=== PATIENT | male | born 1985 | race Caucasian/White ===

== ENCOUNTER 2020-07-20 11:52 | Inpatient (IN) | payer OTHER ==
[~2020-07-20] VITALS: Ht 172.7 cm; Wt 73.0 kg
--- NOTE | 2020-07-20 12:41 | NUR ---
SE RECIBE PACIENTE MASCULINO ALERTA Y ORIENTADO EN LAS RODRIGO ESFERAS. PACIENTE REFIERE KESHA PRESENTADO JASON CONVULSION A LAS 5AM LA CUAL FUE PRESENCIADA POR BARNES NOVIA. PACIENTE REFIERE PRESENTAR DOLOR DE DANDRE. SE CHERYL SIGNOS VITALES Y SE UBICA EN CHRISTA #[id number].
--- NOTE | 2020-07-20 14:31 | NUR ---
PACIENTE EVALUADO POR EL MEDICO EN TUR[place], SE VERIFICAN LAS ORDENES MEDICAS Y SE LE ORIENTA SOBRE LAS MISMAS AL PACIENTE. SE LE CHERYL LAS MUESTRAS DE KIMBERLEE, SE CANALIZA Y SE COLOCA LOS IVF'S Y EKG SE LE REALIZA, RAKESH LA ORDEN MEDICA.
== END 2020-07-22 13:42 | disposition home or self-care (01) | DRG 101 ==
LOC: ER 11:52 → MEDI 18:57
PROVIDERS: ADMIT Internal Medicine; ATTEND Internal Medicine
PROC: B020ZZZ Computerized Tomography (CT Scan) of Brain (ICD-10-PCS; principal; 2020-07-20)
PROC: B030ZZZ Magnetic Resonance Imaging (MRI) of Brain (ICD-10-PCS; 2020-07-20)
DX: G40.89 Other seizures (principal)
CPT/HCPCS: 70544